=== PATIENT | male | born 1970 | race Caucasian/White ===

== ENCOUNTER 2024-06-25 01:52 | Emergency (ER) | payer MEDICAID ==
[~2024-06-25] VITALS: Ht 180.3 cm; Wt 111.1 kg
[2024-06-25 01:58] VITALS: BP_SYST 140; PULSE 102; RESP 18; TEMP 99.6; O2SAT 93
[2024-06-25] MEDS: ONDANSETRON HCL 4 MG/2 ML VIAL IVP ONE (04:07)
[2024-06-25] MEDS: MORPHINE 4 MG INJ. 4 MG/ML VIAL IVP ONE (04:09)
[2024-06-25] MEDS: ENALAPRILAT DIHYDRATE 1.25 MG/ML VIAL IVP ONE (04:19)
[2024-06-25 04:29] LABS: BASOPHILS # (AUTO) 0.1 K/uL (0.0-0.2); BASOPHILS % (AUTO) 0.7 % (0.0-2.0); EOSINOPHILS # (AUTO) 0.2 K/uL (0.0-0.4); HEMATOCRIT 47.8 % (36-54); HEMOGLOBIN 16.1 g/dL (14.0-18.0); LYMPHOCYTES # (AUTO) 0.4 K/uL (1.0-5.5); LYMPHOCYTES % (AUTO) 4.5 % (20.5-51.5); MEAN CORPUSCULAR HEMOGLOBIN 31 pg (27-31); MEAN CORPUSCULAR HGB CONC 34 % (32-36); MEAN CORPUSCULAR VOLUME 92 fL (79.0-98.0); MONOCYTES # (AUTO) 0.8 K/uL (0.0-1.0); NEUTROPHILS % (AUTO) 82.8 % (40.0-70.0); PLATELET COUNT (AUTO) 194 K/uL (130-430); RED BLOOD CELL COUNT(AUTO) 5.23 MIL/uL (4.2-6.2); RED CELL DISTRIBUTION WIDTH 13.6 % (9.0-15.0); WHITE BLOOD COUNT (AUTO) 8.5 K/uL (4.8-10.8)
[2024-06-25 04:35] LABS: CALCIUM 8.7 mg/dL (8.4-11.0); CREATININE 0.88 mg/dL (0.55-1.30); POTASSIUM 4.2 mmol/L (3.5-5.1)
[2024-06-25] MEDS: LABETALOL HCL 20 MG/4 ML CARTRIDGE IVP ONE (05:12)
[2024-06-25] MEDS ORDERED: LISI1TAB57 PO (05:58)
[2024-06-25] MEDS ORDERED: AMLO5TAB4 PO (05:58)
[2024-06-25 06:14] VITALS: BP_SYST 136; PULSE 78; RESP 18; TEMP 99; O2SAT 93
== END 2024-06-25 06:07 | disposition home or self-care (01) ==
LOC: SED 01:52
DX: I10 Essential (primary) hypertension (principal); R51.9 Headache, unspecified; Z79.899 Other long term (current) drug therapy; R07.89 Other chest pain
CPT/HCPCS: 99284; 96374; 96375; 80048; 85025; 36415; J2405; J2270